=== PATIENT | female | born 1930 | race Caucasian/White ===

== ENCOUNTER 2016-08-17 12:49 | Emergency (ER) | payer OTHER ==
[2016-08-17 13:28] VITALS: BMI 17.2
[2016-08-17 14:26] LABS: BASOPHIL 0.5 % (0-2.0); EOSINOPHIL 0.7 % (0-4.5); MCH 30.7 pg (25.7-33.7); MCHC 32.8 g/dl (32.0-36.0); MEAN CELL VOLUME 93.7 fl (80-96); MEAN PLT VOLUME 8.3 fl (7.5-11.1); PLATELET COUNT 296 K/MM3 (134-434); RDW 14.4 % (11.6-15.6); WHITE BLOOD COUNT 7.8 K/mm3 (4.0-10.0)
[2016-08-17 14:29] LABS: URINE APPEARANCE CLOUDY; URINE BILIRUBIN NEGATIVE (NEGATIVE); URINE COLOR YELLOW; URINE GLUCOSE (UA) NEGATIVE (NEGATIVE); URINE KETONE NEGATIVE (NEGATIVE); URINE NITRITE POSITIVE (NEGATIVE); URINE PROTEIN NEGATIVE (NEGATIVE); URINE UROBILINOGEN NEGATIVE E.U./dl (0.2-1.0)
[2016-08-17] MEDS ORDERED: LORAZEPAM CARPU-JECT 2 MG/ML DISP.SYRIN IM ONE (14:33)
[2016-08-17] MEDS ORDERED: LORAZEPAM CARPU-JECT 2 MG/ML DISP.SYRIN ONE (14:34)
[2016-08-17 14:35] LABS: URINE BLOOD 2+ (NEGATIVE); URINE LEUK ESTERASE 2+ (NEGATIVE)
[2016-08-17 14:37] LABS: URINE BACTERIA MANY /hpf (NONE SEEN); URINE HYALINE CAST 9 /lpf; URINE MUCUS RARE; URINE RBC 5 /hpf (0-3); URINE WBC 24 /hpf (3-5)
[2016-08-17 14:53] LABS: ALBUMIN 3.6 g/dl (3.4-5.0); ANION GAP 8 (8-16); BILIRUBIN,TOTAL 0.2 mg/dL (0.2-1.0); CALCIUM 9.4 mg/dL (8.5-10.1); CO2 30 mmol/L (21-32); CREATININE 0.8 mg/dL (0.55-1.02); GLUCOSE,RANDOM 91 mg/dL (74-106); SGOT/AST 12 U/L (15-37); SGPT/ALT 18 U/L (12-78); TOT PROT 6.8 g/dl (6.4-8.2)
[2016-08-17 14:54] LABS: ALK PHOS 79 U/L (45-117)
--- NOTE | 2016-08-17 16:11 | PDOC ---
History of Present Illness - General Chief Complaint: Injury Stated Complaint: FALL Time Seen by Provider: 08/17/16 13:29 History Source: Jail Records Exam Limitations: Dementia - History of Present Illness Initial Comments: 08/17/16 15:12 86-year-old female presents the ED status post witnessed fall. As per staff patient was walking when she tripped going forward landing on her hands and unsure if she struck her head. Patient had no visible injuries but was sent here for further evaluation. Patient is currently on no anticoagulation therapy and staff denies any fever recent antibiotics, or recent illness. Occurred: reports: just prior to arrival Severity: reports: mild Pain Location: reports: none Method of Injury: Yes: fall Loss of Consciousness: no loss of consciousness Associated Symptoms (Fall): denies symptoms Past History - Past Medical History Allergies/Adverse Reactions: Allergies Allergy/AdvReac Type Severity Reaction Status Date / Time No Known Allergies Allergy Verified 08/17/16 12:56 Home Medications: Ambulatory Orders Acetaminophen [Tylenol] 650 mg PO ASDIR 01/30/16 Escitalopram Oxalate [Lexapro -] 5 mg PO HS 01/30/16 Furosemide [Lasix -] 20 mg PO DAILY 01/30/16 Quetiapine Fumarate [Seroquel -] 25 mg PO BID 01/30/16 Cephalexin [Keflex] 500 mg PO BID #14 capsule 08/17/16 Cancer: Yes (melanoma) Dementia: Yes Psychiatric Problems: Yes (anxiety, mood d/o) Other medical history: osteoporosis, MVP - Immunization History Immunization Up to Date: Yes - Psycho/Social/Smoking Cessation Hx Anxiety: No Suicidal Ideation: No Smoking History: Unknown if ever smoked Have you smoked in the past 12 months: No Hx Alcohol Use: No Drug/Substance Use Hx: No Substance Use Type: None Patient Lives Alone: No Lives with/in: [facility] Review of Systems - Review of Systems Able to Perform ROS?: Yes Constitutional: No: Symptoms Reported HEENTM: No: Symptoms Reported Respiratory: No: Symptoms reported Cardiac (ROS): No: Symptoms Reported ABD/GI: No: Symptoms Reported Musculoskeletal: No: Symptoms Reported Integumentary: No: Symptoms Reported Neurological: No: Symptoms reported Endocrine: No: Symptoms Reported *Physical Exam - Vital Signs Last Vital Signs Temp Pulse Resp BP Pulse Ox 99 F 79 18 140/51 08/17/16 13:24 08/17/16 13:24 08/17/16 13:24 08/17/16 13:24 - Physical Exam General Appearance: Yes: Nourished, Appropriately Dressed. No: Apparent Distress HEENT: positive: EOMI, SUELLEN. negative: Pale Conjunctivae Neck: positive: Supple. negative: Tender, Decreased range of motion Respiratory/Chest: positive: Lungs Clear, Normal Breath Sounds. negative: Chest Tender, Respiratory Distress, Accessory Muscle Use Cardiovascular: positive: Regular Rhythm, Regular Rate. negative: Murmur Gastrointestinal/Abdominal: positive: Soft. negative: Tenderness Extremity: positive: Normal Capillary Refill. negative: Pedal Edema Integumentary: positive: Normal Color, Warm, Moist. negative: Swelling, Ecchymosis Neurologic: positive: Alert, Motor Strength 5/5 ( ambulatory with no assistance) ED Treatment Course - LABORATORY CBC & Chemistry Diagram: 08/17/16 13:54 08/17/16 13:54 - ADDITIONAL ORDERS Additional order review: Laboratory Results 08/17/16 08/17/16 13:54 13:54 Sodium 143 Potassium 4.0 Chloride 105 Carbon Dioxide 30 Anion Gap 8 BUN 23 H D Creatinine 0.8 Creat Clearance w eGFR > 60 Random Glucose 91 Calcium 9.4 Total Bilirubin 0.2 D AST 12 L ALT 18 Alkaline Phosphatase 79 Total Protein 6.8 Albumin 3.6 D Urine Color Yellow Urine Appearance Cloudy Urine pH 5.0 Ur Specific [place] 1.016 Urine Protein Negative Urine Glucose (UA) Negative Urine Ketones Negative Urine Blood 2+ H Urine Nitrite Positive Urine Bilirubin Negative Urine Urobilinogen Negative Ur Leukocyte Esterase 2+ H D Urine RBC 5 Urine WBC 24 Ur Epithelial Cells Rare Urine Bacteria Many Hyaline Casts 9 Urine Mucus Rare 08/17/16 13:54 RBC 4.20 MCV 93.7 MCHC 32.8 RDW 14.4 MPV 8.3 Neutrophils % 64.0 Lymphocytes % 27.5 D Monocytes % 7.3 Eosinophils % 0.7 D Basophils % 0.5 - RADIOLOGY Radiology Studies Ordered: Category Date Time Status CERVICAL SPINE CT W/O CONTR [CT] Stat CT Scan 08/17/16 13:[address] WITHOUT CONTRAST [CT] Stat CT Scan 08/17/16 13:52 Completed - Medications Given in the ED: ED Medications Discontinued Medications Generic Name Dose Route Start Last Admin Trade Name Freq PRN Reason Stop Dose Admin Lorazepam 1 mg 08/17/16 14:33 08/17/16 14:51 Ativan Injection - IM 08/17/16 14:34 1 mg ONCE ONE Administration Medical Decision Making - Medical Decision Making 08/17/16 15:16 Status post mechanical fall this morning witnessed by staff. Patient sent here for evaluation of possible head injury. Patient had no visible injuries on exam but is confused at baseline. Patient ordered for labs including urinalysis head CT and cervical CT. 08/17/16 16:17 Laboratory Tests 08/17/16 08/17/16 08/17/16 13:54 13:54 13:54 WBC 7.8 D Hgb 12.9 Hct 39.4 Plt Count 296 Neutrophils % 64.0 Sodium 143 Potassium 4.0 Chloride 105 Anion Gap 8 BUN 23 H D Creatinine 0.8 Random Glucose 91 Calcium 9.4 Total Bilirubin 0.2 D AST 12 L Urine Blood 2+ H Urine Nitrite Positive Ur Leukocyte Esterase 2+ H D Urine WBC [address] Bacteria Many head ct -. cervical CT pending.patient will be discharged back to [facility] with Keflex since she had sensitivity to cephalosporins secondary to Escherichia coli. 08/17/16 16:38 CT negative for acute findings. Patient had a lot of motion artifact despite being given 1 mg of Ativan prior to CT due to her confusion and inability to cooperate. Unable to send prescription through E prescribe. Call placed to [facility] and rx filled *DC/Admit/Observation/Transfer Diagnosis at time of Disposition: UTI (urinary tract infection) - Discharge Dispostion Disposition: HOME Condition at time of disposition: Good - Prescriptions Prescriptions: Cephalexin [Keflex] 500 mg PO BID #14 capsule - Referrals Referrals: Eric Ingram [Primary Care Provider] - - Patient Instructions Printed Discharge Instructions: DI for Urinary Tract Infection (UTI) Additional Instructions: Please give patient Keflex as prescribed until completed. A urine culture was sent again today to check for sensitivity and organisms. Please provide patient with a seat environment
[2016-08-17 17:34] VITALS: BP 128/48; PULSE 68; TEMP 98
--- NOTE | 2016-08-17 23:35 | EKG ---
Test Reason : Blood Pressure : / mmHG Vent. Rate : 067 BPM Atrial Rate : 067 BPM P-R Int : 128 ms QRS Dur : 064 ms QT Int : 388 ms P-R-T Axes : 094 -15 005 degrees QTc Int : 409 ms POOR DATA QUALITY, INTERPRETATION MAY BE ADVERSELY AFFECTED NORMAL SINUS RHYTHM NONSPECIFIC ST AND T WAVE ABNORMALITY ABNORMAL ECG WHEN COMPARED WITH ECG OF 05-JAN-2016 10:04, NO SIGNIFICANT CHANGE WAS FOUND Confirmed by DIMAS NEWTON MD ([id number]) on 08/17/2016 11:34:48 PM Referred By: Confirmed By:DIMAS NEWTON MD
== END 2016-08-17 17:54 ==
LOC: JER 12:49
PROC: 3E023NZ Introduction of Analgesics, Hypnotics, Sedatives into Muscle, Percutaneous Approach (ICD-10-PCS; principal; 2016-08-17)
DX: S09.8XXA Other specified injuries of head, initial encounter (principal); N39.0 Urinary tract infection, site not specified; F03.91 Unspecified dementia, unspecified severity, with behavioral disturbance; F41.9 Anxiety disorder, unspecified; Z85.820 Personal history of malignant melanoma of skin; W18.39XA Other fall on same level, initial encounter; Y93.89 Activity, other specified; Y92.128 Other place in nursing home as the place of occurrence of the external cause
CPT/HCPCS: 36415; 70450-TC; 72125-TC; 80053; 81003; 81015; 85025; 87086; 93005; 93010; 99282-25

== ENCOUNTER 2017-04-10 00:38 | Emergency (ER) | payer OTHER ==
[2017-04-10 01:56] VITALS: BP 130/53; PULSE 58; TEMP 97.6; BMI 18.1
--- NOTE | 2017-04-10 02:25 | PDOC ---
History of Present Illness - General History Source: Patient, Other Exam Limitations: Dementia <Jina Drummond - Last Filed: 04/10/17 02:21> - History of Present Illness Initial Comments: 04/10/17 02:27 The patient is a 87 year old female, with a significant past medical history of advanced dementia, hypertension, anxiety, depression, and wandering at night, who presents to the emergency department via ems from [facility] for a laceration to left hand. As per [facility], the patient has a history of wandering at night, sleeping on floors, and moving things around. The patient was found to have a laceration on her left hand, but denies finding the patient on the floor. Allergies: NKDA <Rosa Bernard - Last Filed: 04/10/17 02:32> - General Chief Complaint: Laceration Stated Complaint: LACERATION Past History - Past Medical History Cancer: Yes (melanoma) Dementia: Yes Psychiatric Problems: Yes (anxiety, mood d/o) - Immunization History Immunization Up to Date: Yes - Suicide/Smoking/Psychosocial Hx Smoking History: Unknown if ever smoked Have you smoked in the past 12 months: No Information on smoking cessation initiated: No Hx Alcohol Use: No Drug/Substance Use Hx: No Substance Use Type: None <Jina Drummond - Last Filed: 04/10/17 02:21> <Rosa Bernard - Last Filed: 04/10/17 02:32> - Past Medical History Allergies/Adverse Reactions: Allergies Allergy/AdvReac Type Severity Reaction Status Date / Time No Known Allergies Allergy Verified 04/10/17 01:57 Home Medications: Ambulatory Orders Acetaminophen [Tylenol] 650 mg PO ASDIR 01/30/16 Escitalopram Oxalate [Lexapro -] 5 mg PO HS 01/30/16 Furosemide [Lasix -] 20 mg PO DAILY 01/30/16 Quetiapine Fumarate [Seroquel -] 25 mg PO BID 01/30/16 Cephalexin [Keflex] 500 mg PO BID #14 capsule 08/17/16 Review of Systems - Review of Systems Able to Perform ROS?: No (dementia) <Rosa Bernard - Last Filed: 04/10/17 02:32> *Physical Exam - Vital Signs Last Vital Signs Temp Pulse Resp BP Pulse Ox 97.6 F 58 L 16 130/53 100 04/10/17 00:45 04/10/17 00:45 04/10/17 00:45 04/10/17 00:45 04/10/17 00:45 <Jina Drummond - Last Filed: 04/10/17 02:21> - Vital Signs Last Vital Signs Temp Pulse Resp BP Pulse Ox 97.6 F 58 L 16 130/53 100 04/10/17 00:45 04/10/17 00:45 04/10/17 00:45 04/10/17 00:45 04/10/17 00:45 - Physical Exam Comments: 04/10/17 02:28 GENERAL: Awake, alert, and confused. in no acute distress HEAD: No signs of trauma EYES: PERRLA, EOMI, sclera anicteric, conjunctiva clear ENT: Auricles normal inspection, hearing grossly normal, nares patent, oropharynx clear without exudates. Moist mucosa NECK: No cervical spine tenderness. Normal ROM, supple, no lymphadenopathy, JVD , or masses LUNGS: Breath sounds equal, clear to auscultation bilaterally. No wheezes, and no crackles HEART: Regular rate and rhythm, normal S1 and S2, no murmurs, rubs or gallops ABDOMEN: Soft, nontender, normoactive bowel sounds. No guarding, no rebound. No masses EXTREMITIES: Normal range of motion, no edema. No clubbing or cyanosis. No cords , erythema, or tenderness NEUROLOGICAL: Cranial nerves II through XII grossly intact. Normal speech, normal gait SKIN: (+) irregular in shape, superficial thin skin avulsion. Warm, Dry, normal turgor, no rashes. <Rosa Bernard - Last Filed: 04/10/17 02:32> ED Treatment Course - RADIOLOGY Radiology Studies Ordered: Category Date Time Status HAND- LEFT [RAD] Stat Radiology 04/10/17 02:06 Ordered <Jina Drummond - Last Filed: 04/10/17 02:21> Medical Decision Making - Medical Decision Making 04/10/17 02:22 87 yo f with h/o dementia, frequent falls, wandering at night here for laceration on her left hand. found on pt on examination. no witnessed trauma. was found sitting in room. not on floor. no signs of head trauma. pt no complaints of pain. no mod factors. no other complaints. on exam awake alert head atraumatic. no cervical spin tenderness. eomi. lungs clear heart rrr no mrg. abd soft nt nd. ext wwp. left hand with superifical skin tear/ avulsion. no bony tenderness. from hand. wrist nt from. elbow nt from. moves all ext. alert oriented x 1. plan : pt with superificial age indeterminate skin avulsion left hand. unable to suture due to thin skin, plan wound care. dc home to nursing facility. <Jina Drummond - Last Filed: 04/10/17 02:21> - Medical Decision Making 04/10/17 02:30 The nursing facility was called upon patient arrival to discuss the patient's reason for her ED visit today. I spoke with Angie who states she was not the nurse present when they found the patient with the laceration, however, she states the patient has a history of wandering around at night and getting into things she shouldn't be. Angie states she was not informed that the patient fell or was found on the floor. Angie states the concern today was for the laceration to her left hand. <Rosa Bernard - Last Filed: 04/10/17 02:32> *DC/Admit/Observation/Transfer - Discharge Dispostion Admit: No <Jina Drummond - Last Filed: 04/10/17 02:21> - Attestations Scribe Attestion: 04/10/17 02:29 Documentation prepared by Rosa Bernard, acting as emergency medical service manager for Jina Drummond MD, <Rosa Bernard - Last Filed: 04/10/17 02:32> Diagnosis at time of Disposition: Skin tear - Discharge Dispostion Disposition: HALF-WAY FACILITY Condition at time of disposition: Fair - Referrals Referrals: STAFF,NOT ON [Primary Care Provider] - - Patient Instructions Printed Discharge Instructions: DI for Abrasion Additional Instructions: you can apply bacitracin twice daily. return for any problems or concerns.
== END 2017-04-10 03:26 ==
LOC: JER 00:38
DX: S61.412A Laceration without foreign body of left hand, initial encounter (principal); X58.XXXA Exposure to other specified factors, initial encounter; Y93.89 Activity, other specified; Y92.092 Bedroom in other non-institutional residence as the place of occurrence of the external cause; Y99.8 Other external cause status; I10 Essential (primary) hypertension; F41.8 Other specified anxiety disorders; F03.90 Unspecified dementia, unspecified severity, without behavioral disturbance, psychotic disturbance, mood disturbance, and anxiety; Z91.83 Wandering in diseases classified elsewhere
CPT/HCPCS: 99282-25

== ENCOUNTER 2017-04-25 21:42 | Emergency (ER) | payer OTHER ==
[2017-04-25 22:06] VITALS: PULSE 106; BMI 18.3
[2017-04-25 23:04] LABS: BASOPHIL 0.8 % (0-2.0); EOSINOPHIL 0.5 % (0-4.5); MCH 30.1 pg (25.7-33.7); MCHC 32.7 g/dl (32.0-36.0); MEAN CELL VOLUME 92.3 fl (80-96); MEAN PLT VOLUME 8.5 fl (7.5-11.1); NEUTROPHILS 75.8 % (42.8-82.8); PLATELET COUNT 280 K/MM3 (134-434); RDW 15.1 % (11.6-15.6); WHITE BLOOD COUNT 11.3 K/mm3 (4.0-10.0)
[2017-04-25 23:44] LABS: ALBUMIN 3.2 g/dl (3.4-5.0); ANION GAP 9 (8-16); BILIRUBIN,TOTAL 0.3 mg/dL (0.2-1.0); CALCIUM 9.5 mg/dL (8.5-10.1); CO2 26 mmol/L (21-32); CREATININE 0.7 mg/dL (0.55-1.02); GLUCOSE,RANDOM 115 mg/dL (74-106); MAGNESIUM 2.5 mg/dL (1.8-2.4); SGOT/AST 11 U/L (15-37); SGPT/ALT 14 U/L (12-78); TOT PROT 6.7 g/dl (6.4-8.2)
[2017-04-25 23:46] LABS: ALK PHOS 90 U/L (45-117); CPK 49 IU/L (26-192); TROPONIN I < 0.02 ng/ml (0.00-0.05)
--- NOTE | 2017-04-25 23:55 | PDOC ---
History of Present Illness - General History Source: EMS, Long Term Records Exam Limitations: Dementia <Beatrice Underwood - Last Filed: 04/26/17 00:02> <Humza Cr - Last Filed: 04/26/17 00:24> - General Chief Complaint: Syncope/Near Syncope Stated Complaint: SYNCOPE Time Seen by Provider: 04/25/17 22:03 - History of Present Illness Initial Comments: 04/25/17 23:55 The patient is a 87 year old female, resident of [facility], with a significant past medical history of advanced dementia, malignant melanoma of the skin, anxiety, depression, hypertension, and osteoporosis, who presents to the emergency department BIBA s/p syncopal episode earlier this evening. Per EMS, assisted living staff reported patient was being transferred from her wheelchair to her bed, when suddenly she slid onto the floor and syncopized. EMS reports no head trauma. Patients history is limited due to clinical condition. Allergies: NKDA Past Surgical History: None reported Social History: Nonsmoker. No ETOH or recreational drug use. (Beatrice Underwood) Past History <Beatrice Underwood - Last Filed: 04/26/17 00:02> - Past Medical History Cancer: Yes (melanoma) Dementia: Yes Psychiatric Problems: Yes (anxiety, mood d/o) - Immunization History Immunization Up to Date: Yes - Suicide/Smoking/Psychosocial Hx Smoking History: Never smoked Have you smoked in the past 12 months: No Information on smoking cessation initiated: No Hx Alcohol Use: No Drug/Substance Use Hx: No Substance Use Type: None <Humza Cr - Last Filed: 04/26/17 00:24> - Past Medical History Allergies/Adverse Reactions: Allergies Allergy/AdvReac Type Severity Reaction Status Date / Time No Known Allergies Allergy Verified 04/25/17 22:04 Home Medications: Ambulatory Orders Acetaminophen [Tylenol] 650 mg PO ASDIR 01/30/16 Escitalopram Oxalate [Lexapro -] 5 mg PO HS 01/30/16 Furosemide [Lasix -] 20 mg PO DAILY 01/30/16 Quetiapine Fumarate [Seroquel -] 25 mg PO BID 01/30/16 Review of Systems - Review of Systems Able to Perform ROS?: No <Beatrice Underwood - Last Filed: 04/26/17 00:02> <Humza Cr - Last Filed: 04/26/17 00:24> - Review of Systems Comments:: 04/26/17 00:01 Limited due to clinical condition. (Beatrice Underwood) *Physical Exam <Beatrice Underwood - Last Filed: 04/26/17 00:02> <Humza Cr - Last Filed: 04/26/17 00:24> - Vital Signs Last Vital Signs Temp Pulse Resp BP Pulse Ox 106 H 14 155/76 98 04/25/17 22:05 04/25/17 22:05 04/25/17 22:05 04/25/17 22:05 - Physical Exam Comments: 04/26/17 00:21 EXAMINATION CONSTITUTIONAL: Awake and alert; frail-appearing; moaning coherently; in no apparent distress HEAD: Normocephalic; atraumatic EYES: PERRL; patient is following M.D. around the room; conjunctiva are pink; ENMT: External appears normal; normal oropharynx NECK: non-tender; no cervical lymphadenopathy CARD: Normal S1, S2; no murmurs, rubs, or gallops RESP: Normal chest excursion with respiration; breath sounds clear and equal bilaterally; no wheezes, rhonchi, or rales ABD: Soft, non-distended; non-tender; no palpable organomegaly, no palpable hernias EXT: Normal ROM in all four extremities; non-tender to palpation; distal pulses intact SKIN: Warm, dry, + multiple abrasions and skin avulsions bilaterally (more prominent to the right upper extremity); NEURO: Awake and alert, nonverbal, moaning coherently, doesn't follow commands, moving all extremities spontaneously and symmetrically; gait-deferred. (Humza Cr) Heart Score/ECG Review <Beatrice Underwood - Last Filed: 04/26/17 00:02> <Humza Cr - Last Filed: 04/26/17 00:24> - ECG Intrepretation Comment:: 04/26/17 00:01 Vent Rate: 75 bpm IMPRESSION: Normal sinus rhythm. Nonspecific T wave abnormality. No changes since ECG on 08/17/16. (Beatrice Underwood) ED Treatment Course - LABORATORY CBC & Chemistry Diagram: 04/25/17 22:50 04/25/17 22:50 <Beatrice Underwood - Last Filed: 04/26/17 00:02> - LABORATORY CBC & Chemistry Diagram: 04/25/17 22:50 04/25/17 22:50 <Humza Cr - Last Filed: 04/26/17 00:24> - ADDITIONAL ORDERS Additional order review: Laboratory Results 04/25/17 22:50 Sodium 144 Potassium 3.9 Chloride 109 H Carbon Dioxide 26 Anion Gap 9 BUN 24 H Creatinine 0.7 Creat Clearance w eGFR > 60 Random Glucose 115 H D Calcium 9.5 Magnesium 2.5 H Total Bilirubin 0.3 D AST 11 L ALT 14 D Alkaline Phosphatase 90 Creatine Kinase 49 Troponin I < 0.02 Total Protein 6.7 Albumin 3.2 L 04/25/17 22:50 RBC 4.11 MCV 92.3 MCHC 32.7 RDW 15.1 MPV 8.5 Neutrophils % 75.8 Lymphocytes % 15.0 D Monocytes % 7.9 Eosinophils % 0.5 Basophils % 0.8 Medical Decision Making <Beatrice Underwood - Last Filed: 04/26/17 00:02> <Humza Cr - Last Filed: 04/26/17 00:24> - Medical Decision Making 04/26/17 00:22 Patient is frail-appearing 87-year-old female with advanced dementia who was brought in from [facility] for a witnessed brief syncopal episode while on the ground. No evidence of head injury is noted. EKG is unchanged without evidence of acute ischemia or dysrhythmia; CBC/CMP are unchanged from previous. I do not suspect acute cardiac related syncope at this time. Will discharge to detention. Patient's informed. (Humza Cr) *DC/Admit/Observation/Transfer <Beatrice Underwood - Last Filed: 04/26/17 00:02> <Humza Cr - Last Filed: 04/26/17 00:24> Diagnosis at time of Disposition: Skin tear Syncope Qualifiers: Syncope type: unspecified Qualified Code(s): R55 - Syncope and collapse; R55 - Syncope and collapse - Discharge Dispostion Disposition: HOME Condition at time of disposition: Stable - Referrals Referrals: STAFF,NOT ON [Primary Care Provider] - pmd, as needed [Other] - Patient Instructions Printed Discharge Instructions: DI for Syncope in Adults (Fainting) - Attestations Scribe Attestion: 04/26/17 00:03 Documentation prepared by Beatrice Underwood, acting as district medical examiner for Humza Cr MD. (Beatrice Underwood) Physician Attestion: 04/26/17 00:20 The documentation was prepared by the scribe under my direct supervision. I have reviewed the documentation which correctly represents the findings, medical decision-making and critical action taken by me. (Humza Cr)
[2017-04-26 00:52] VITALS: BP 111/64
--- NOTE | 2017-04-26 14:09 | EKG ---
Test Reason : Blood Pressure : / mmHG Vent. Rate : 075 BPM Atrial Rate : 075 BPM P-R Int : 150 ms QRS Dur : 074 ms QT Int : 364 ms P-R-T Axes : 071 -16 011 degrees QTc Int : 406 ms NORMAL SINUS RHYTHM NONSPECIFIC T WAVE ABNORMALITY ABNORMAL ECG WHEN COMPARED WITH ECG OF 17-AUG-2016 14:10, NO SIGNIFICANT CHANGE WAS FOUND Confirmed by DIMAS NEWTON MD ([id number]) on 04/26/2017 2:09:00 PM Referred By: Confirmed By:DIMAS NEWTON MD
== END 2017-04-26 01:14 ==
LOC: JER 21:42
DX: R55 Syncope and collapse (principal); S40.811A Abrasion of right upper arm, initial encounter; W17.89XA Other fall from one level to another, initial encounter; Y93.89 Activity, other specified; Y92.092 Bedroom in other non-institutional residence as the place of occurrence of the external cause
CPT/HCPCS: 36415; 80053; 83735; 84484; 85025; 93005; 93010; 99282-25